=== PATIENT | female | born 1955 | race Caucasian/White ===

== ENCOUNTER 2025-08-18 13:08 | Outpatient (CLI) | payer MEDICARE | END 2025-08-18 13:09 | disposition home or self-care (01) | LOC: CSHMAMMO 13:08 | PROVIDERS: ATTEND Family Medicine | DX: N64.59 Other signs and symptoms in breast (principal); N63.11 Unspecified lump in the right breast, upper outer quadrant; N63.15 Unspecified lump in the right breast, overlapping quadrants; N60.02 Solitary cyst of left breast; N64.89 Other specified disorders of breast | CPT/HCPCS: 76642; 77066; G0279 ==

== ENCOUNTER → 2025-08-25 | Day surgery (SDC) | payer MEDICARE | LOC: CSHULT 12:24 | PROVIDERS: ATTEND Family Medicine | PROC: 0HB5XZX Excision of Chest Skin, External Approach, Diagnostic (ICD-10-PCS; principal; 2025-08-25) | DX: C50.411 Malignant neoplasm of upper-outer quadrant of right female breast (principal); R92.8 Other abnormal and inconclusive findings on diagnostic imaging of breast | CPT/HCPCS: 19083; A4648; 88305; 88341; 88342 ==

== ENCOUNTER 2025-09-19 10:20 | Outpatient (CLI) | payer MEDICARE | END 2025-09-19 10:21 | disposition home or self-care (01) | LOC: CSHMAMMO 10:20 | PROVIDERS: ATTEND Specialist | DX: C50.911 Malignant neoplasm of unspecified site of right female breast (principal); Z01.818 Encounter for other preprocedural examination | CPT/HCPCS: 96372; A9697; 71046; 80048; 85025; 93005; 93010 ==